=== PATIENT | male | born 1970 | race African-American/Black ===

== ENCOUNTER 2019-04-12 03:32 | Inpatient (IN) | payer MEDICARE, MEDICAID ==
[~2019-04-12] VITALS: Ht 188 cm; Wt 103.0 kg
[2019-04-12] MEDS ORDERED: MORPHINE SULFATE 4 MG/ML CPJ (NOT FOR IM USE) IV STA (04:06)
[2019-04-12] MEDS ORDERED: ONDANSETRON HCL 4MG/2ML INJ IV STA (04:06)
[2019-04-12] MEDS ORDERED: SODIUM CHLORIDE 0.9% 1,000 ML IV ONE (04:06)
[2019-04-12 04:34] LABS: BASOPHILS % 0.8 % (0.0-2.0); EOSINOPHILS % 4.9 % (0.0-5.0); HEMATOCRIT. 35.7 % (42.0-52.0); HEMOGLOBIN. 12.5 g/dL (14.0-18.0); LYMPHOCYTES % 23.4 % (20.0-50.0); MEAN CORPUSCULAR HEMOGLOBIN 36.1 pg (28.0-32.0); MEAN CORPUSCULAR VOLUME 103.1 fL (80.0-94.0); MEAN PLATELET VOLUME 7.8 fl (7.4-10.4); MONOCYTES % 12.6 % (2.0-8.0); NEUTROPHILS % 58.3 % (40.0-76.0); PLATELET 98 x1000/uL (130-400); RED BLOOD CELL COUNT 3.47 mill/uL (4.7-6.1); RED CELL DISTRIBUTION WIDTH 14.9 % (11.6-14.6)
[2019-04-12 04:41] LABS: PROTHROMBIN TIME 10.3 sec (9.6-11.0)
[2019-04-12 04:42] LABS: CHLORIDE 104 mEq/L (98-107)
[2019-04-12 04:58] LABS: ETHANOL BLOOD 465 mg/dL
[2019-04-12 06:09] LABS: CLARITY URINE CLEAR (CLEAR); COLOR URINE DARK YELLOW (YELLOW); KETONES URINE NEGATIVE (NEGATIVE); LEUKOCYTE ESTERASE URINE NEGATIVE (NEGATIVE); NITRITE URINE NEGATIVE (NEGATIVE); OCCULT BLOOD URINE 1+ (NEGATIVE); PROTEIN URINE 3+ (NEGATIVE); SPECIFIC GRAVITY URINE 1.022 (1.005-1.030)
[2019-04-12 06:19] LABS: *AMPHETAMINES SCREEN URINE NEGATIVE (NEGATIVE); *BARBITURATES SCREEN URINE NEGATIVE (NEGATIVE); *BENZODIAZEPINES SCREEN URINE NEGATIVE (NEGATIVE); *COCAINE SCREEN URINE NEGATIVE (NEGATIVE); METHADONE URINE SCREEN NEGATIVE (NEGATIVE); OPIATES URINE SCREEN PRESUMTIVE POSITIVE (NEGATIVE)
[2019-04-12 06:20] LABS: CANNABINOID URINE SCREEN NEGATIVE (NEGATIVE); PHENCYCLIDINE URINE SCREEN NEGATIVE (NEGATIVE)
[2019-04-12] MEDS ORDERED: IOHEXOL-300 100 ML BOTTLE ONE (07:29)
[2019-04-12] MEDS ORDERED: DOCUSATE SODIUM 100MG CAPSULE PO PRN (07:30)
[2019-04-12] MEDS ORDERED: TRAMADOL 50MG TABLET PO PRN (07:30)
[2019-04-12] MEDS ORDERED: ACETAMINOPHEN 325MG TABLET PO PRN (07:30)
[2019-04-12] MEDS ORDERED: POTASSIUM CHLORIDE 20MEQ TABLET SR PO SCH (07:30)
[2019-04-12] MEDS ORDERED: GUAIFENESIN 200MG/10ML SUGAR FREE UDC PO PRN (07:30)
[2019-04-12] MEDS ORDERED: CLONIDINE 0.1MG TABLET PO PRN (07:30)
[2019-04-12] MEDS ORDERED: KETOROLAC 15MG/ML VIAL IV PRN (07:30)
[2019-04-12] MEDS ORDERED: NITROGLYCERIN 0.4MG TABLET SL SL PRN (07:30)
[2019-04-12] MEDS ORDERED: IPRATROPIUM/ALBUTEROL 0.5-3(2.5)MG/3ML NEB ORI PRN (07:30)
[2019-04-12] MEDS ORDERED: ENOXAPARIN 40MG/0.4ML SYR SUBCUT SCH (07:30)
[2019-04-12] MEDS ORDERED: MAGNESIUM/ALUMINUM HYDROXIDE/SIMETHICONE 30ML UDC PO PRN (07:30)
[2019-04-12] MEDS: ENOXAPARIN 30MG/0.3ML SYR SUBCUT SCH ×2 (07:45→20:51)
[2019-04-12 08:11] LABS: VITAMIN B12 SERUM >2000 pg/mL pg/mL (211-911)
[2019-04-12 09:00] VITALS: BP 140/93
[2019-04-12] MEDS ORDERED: PANTOPRAZOLE SODIUM 40 MG/VIAL IV SCH (09:00)
[2019-04-12 09:15] VITALS: BP 140/93
[2019-04-12] MEDS ORDERED: MVI, ADULT NO.1 10 ML, FOLIC ACID 1 MG, THIAMINE HCL 100 MG in SODIUM CHLORIDE 0.9% 1,0... IV SCH ×4 (10:30)
[2019-04-12 12:00] VITALS: BP 125/82
[2019-04-12] MEDS: ASPIRIN 81MG EC TABLET PO SCH (12:08)
[2019-04-12] MEDS: METOPROLOL TARTRATE 25MG TABLET PO SCH ×2 (12:08→20:50)
[2019-04-12] MEDS: SUCRALFATE 1 G/10 ML UDC PO SCH ×4 (12:09→20:50)
[2019-04-12] MEDS: PANTOPRAZOLE SODIUM 40 MG/VIAL IV SCH (15:41)
[2019-04-12 16:00] VITALS: BP 129/70
[2019-04-12 16:41] LABS: CREATINE KINASE MB FRACTION 1.4 ng/mL (0.5-3.6)
[2019-04-12] MEDS: ONDANSETRON HCL 4MG/2ML INJ IV PRN (19:04)
[2019-04-12 20:00] VITALS: BP 126/75
[2019-04-12] MEDS ORDERED: METOCLOPRAMIDE HCL 10MG/2ML VIAL IV NR (20:15)
[2019-04-12] MEDS ORDERED: ZOLPIDEM TARTRATE 5MG TABLET PO PRN (21:00)
[2019-04-12] MEDS: LORAZEPAM 0.5MG TABLET PO PRN (22:02)
[2019-04-13] VITALS: BP 130/86
[2019-04-13 00:11] LABS: CREATINE KINASE MB FRACTION 1.3 ng/mL (0.5-3.6)
[2019-04-13] MEDS: LORAZEPAM 0.5MG TABLET PO PRN ×3 (03:43→21:14)
[2019-04-13] MEDS: ONDANSETRON HCL 4MG/2ML INJ IV PRN ×2 (03:43→09:36)
[2019-04-13 04:00] VITALS: BP 154/96
[2019-04-13 08:00] VITALS: BP 149/86
[2019-04-13] MEDS: ENOXAPARIN 30MG/0.3ML SYR SUBCUT SCH (09:00)
[2019-04-13] MEDS ORDERED: PANTOPRAZOLE SODIUM 40 MG/VIAL IV SCH (09:00)
[2019-04-13] MEDS: SUCRALFATE 1 G/10 ML UDC PO SCH ×4 (09:36→21:13)
[2019-04-13] MEDS: ASPIRIN 81MG EC TABLET PO SCH (09:37)
[2019-04-13] MEDS: PANTOPRAZOLE SODIUM 40 MG/VIAL IV SCH (09:37)
[2019-04-13] MEDS: METOPROLOL TARTRATE 25MG TABLET PO SCH ×2 (09:37→21:13)
[2019-04-13 12:00] VITALS: BP 153/92
[2019-04-13] MEDS: POLYVINYL ALCOHOL OPHTH DROPS 15ML BOTHEYE SCH ×2 (13:34→17:24)
[2019-04-13 16:00] VITALS: BP 157/104
[2019-04-13 20:00] VITALS: BP 145/100
[2019-04-14] VITALS: BP 145/98
[2019-04-14] MEDS: LORAZEPAM 0.5MG TABLET PO PRN (01:28)
[2019-04-14 04:00] VITALS: BP 130/68
[2019-04-14 08:00] VITALS: BP 137/78
[2019-04-14] MEDS: SUCRALFATE 1 G/10 ML UDC PO SCH (08:47)
[2019-04-14] MEDS: PANTOPRAZOLE SODIUM 40 MG/VIAL IV SCH (08:48)
[2019-04-14] MEDS: POLYVINYL ALCOHOL OPHTH DROPS 15ML BOTHEYE SCH (08:48)
[2019-04-14] MEDS: ASPIRIN 81MG EC TABLET PO SCH (08:48)
[2019-04-14] MEDS: METOPROLOL TARTRATE 25MG TABLET PO SCH (08:49)
[2019-04-14] MEDS ORDERED: ENOXAPARIN 40MG/0.4ML SYR SUBCUT SCH (09:00)
== END 2019-04-14 10:16 | disposition left against medical advice (07) | DRG 313 ==
LOC: ER 03:42 → 7WST 05:37 → EDBEDREQ 05:39 → EDBEDREQTM 05:39 → SUPCPDRO 07:20 → ENRESERV 08:19
PROVIDERS: ADMIT Internal Medicine; ATTEND Internal Medicine
DX: R07.89 Other chest pain (principal); E44.0 Moderate protein-calorie malnutrition; F10.129 Alcohol abuse with intoxication, unspecified; D64.9 Anemia, unspecified; E83.51 Hypocalcemia; E87.6 Hypokalemia; Y90.8 Blood alcohol level of 240 mg/100 ml or more; I10 Essential (primary) hypertension; Z68.29 Body mass index [BMI] 29.0-29.9, adult
CPT/HCPCS: 36415; 71045; 74177; 80061; 80305; 80320; 81003; 82550; 82553; 82607; 82746; 83036; 83540; 83550; 83735; 83880; 84484; 93005; 93306; 93970; 96361; 96374; 96375; 99285; C1893; C9113; J1650; J2270; J2405; J2765; J3411; J3490; J7030; Q9967; G0480